=== PATIENT | male | born 1955 | race Caucasian/White ===

== ENCOUNTER 2023-05-06 12:39 | Emergency (ER) | payer OTHER ==
[~2023-05-06 12:39] MED LIST: Iopamidol 370 76% 100 ML VIAL ONE
[2023-05-06 14:32] LABS: #Basophils 0.1 10x3/uL (0.0-0.2); #Eosinphils 0.1 10x3/uL (0.0-0.5); #Monocytes 0.9 10x3/uL (0.0-1.1); #Neutrophils 10.2 10x3/uL (1.5-8.4); %Basophils 0.6 % (0.0-2.0); %Eosinophils 0.4 % (0.0-6.0); %Lymphocytes 9.3 % (18.0-47.0); %Monocytes 7.1 % (0.0-10.0); %Neutrophils 80.8 % (40.0-75.0); Hematocrit 34.1 % (38.8-50.0); Hemoglobin 11.3 g/dL (13.5-17.5); Mean Corpuscular HGB CONC 33.1 g/dL (32.0-36.0); Mean Corpuscular Hemoglobin 30.3 pg (27.0-33.0); Mean Corpuscular Volume 91.4 fl (81.2-95.1); Mean Platelet Volume 10.1 fl (7.4-10.4); Platelet Count 185 10x3/uL (150-450); RBC Distribution Width 13.7 % (11.5-14.5); Red Blood Cell (RBC) Count 3.73 10x6/uL (4.32-5.72); White Blood Cell (WBC) Count 12.7 10x3/uL (3.5-10.5)
[2023-05-06 14:49] LABS: ALT (SGPT) 10 U/L (8-55); AST (SGOT) 17 U/L (5-34); Albumin 3.5 g/dL (3.4-4.8); Alkaline Phosphatase 67 U/L (40-110); Anion Gap 15 mmol/L (10-20); BUN (Urea Nitrogen) 26 mg/dL (8.4-25.7); Bilirubin, Total 1.5 mg/dL (0.2-1.2); Calc. Creatinine Clearance 0 mL/min (70-130); Calcium 8.7 mg/dL (7.8-10.44); Carbon Dioxide 31 mmol/L (23-31); Chloride 99 mmol/L (98-107); Estimated GFR 100; Globulin 2.5 g/dL (2.4-3.5); Glucose 112 mg/dL (80-115); Sodium 142 mmol/L (136-145)
[2023-05-06 14:52] LABS: Troponin I Less than 0.010 ng/mL (< 0.028)
[2023-05-06 14:55] LABS: Potassium 2.6 mmol/L (3.5-5.1)
[2023-05-06 15:15] LABS: SARS-CoV-2 NAA Rapid Test Not Detected (NotDetected)
[2023-05-06] MEDS ORDERED: Potassium Chloride 20 MEQ/100 ML PREMIX BAG ONE (16:41)
[2023-05-06] MEDS ORDERED: Furosemide 40 MG/4 ML VIAL ONE (16:41)
[2023-05-06] MEDS ORDERED: Potassium Chloride 20 MEQ TAB ONE (16:42)
[2023-05-06] MEDS ORDERED: Cefepime 1 GM VIAL ONE (18:06)
[2023-05-06] MEDS ORDERED: methylPREDNISolone Sod Succ/PF 125 MG/2 ML VIAL ONE (18:06)
[2023-05-06] MEDS ORDERED: Azithromycin 500 MG VIAL ONE (18:06)
[2023-05-06 18:07] LABS: ALV-art Gradient 596.475 mmHg (0-20); Actual Bicarbonate (HCO3a) 33.2 mEq/L (22-28); Base Excess (BEa) 9.3 mEq/L (-2.0 to +3.0); CO2 Tension 42.5 mmHg (35.0-45.0); Carboxyhemoglobin (COHb) 1.1 gm% (0.0-3.0); Hematocrit-ABG 36 % (42.0-52.0); Hemoglobin (Hb) 12.4 g/dL (14.0-18.0); O2 Tension (PaO2), arterial 63.4 mmHg (> 80.0); Potassium - ABG Lab 2.72 mmol/L (3.70-5.30); Puncture Site RRA; pH, Arterial 7.511 (7.35-7.45)
== END 2023-05-06 21:33 | disposition short-term general hospital (02) ==
LOC: CSHERS 12:39
DX: J80 Acute respiratory distress syndrome (principal); Z20.822 Contact with and (suspected) exposure to COVID-19
CPT/HCPCS: 36600; 71046; 71275; 80053; 82805; 83880; 84484; 85025; 93005; 94660; 94760; 96365; 96366; 96368; 96375; J0456; J0692; J1940; J2930; J3480; Q9967